=== PATIENT | female | born 1970 | race Caucasian/White ===

== ENCOUNTER → 2019-05-11 | Outpatient (CLI) | payer BC ==
--- NOTE | 2019-05-11 11:17 | MM ---
Reason for exam: screening (asymptomatic). Last mammogram was performed 3 years and 5 months ago. History: Implants in both breasts, June 2014. Taking hormonal contraceptives for 2 years. Physical Findings: A clinical breast exam by your physician is recommended on an annual basis and results should be correlated with mammographic findings. MG Screening Mammo Implant/CAD Bilateral CC, MLO, and ID view(s) were taken. Prior study comparison: November 29, 2015, bilateral MG screening mammo implant/CAD. October 01, 2012, mammogram, performed at [facility]. The breast tissue is heterogeneously dense. This may lower the sensitivity of mammography. No suspicious abnormality. Bilateral prepectoral silicone implants. No significant changes when compared with prior studies. ASSESSMENT: Negative, BI-RAD 1 RECOMMENDATION: Routine screening mammogram of both breasts in 1 year.
== END | disposition home or self-care (01) ==
LOC: RADMAMWWP 07:00
PROVIDERS: ATTEND Obstetrics & Gynecology
DX: Z12.31 Encounter for screening mammogram for malignant neoplasm of breast (principal); Z98.82 Breast implant status
CPT/HCPCS: 77067

== ENCOUNTER → 2019-09-04 | Outpatient (CLI) | payer BC ==
[2019-09-04 08:40] LABS: Basophils % (A) 1 %; Eosinophils # (A) 0.2 k/uL (0-0.7); Eosinophils % (A) 3 %; HCT 41.1 % (34.0-46.0); HGB 13.7 gm/dL (11.4-16.0); Lymphocytes # (A) 2.4 k/uL (1.0-4.8); Lymphocytes % (A) 37 %; MCH 31.8 pg (25.0-35.0); MCHC 33.3 g/dL (31.0-37.0); MCV 95.6 fL (80.0-100.0); Monocytes # (A) 0.5 k/uL (0-1.0); Monocytes % (A) 7 %; Neutrophils # (A) 3.3 k/uL (1.3-7.7); Neutrophils % (A) 50 %; Platelet Count 350 k/uL (150-450); RDW 11.9 % (11.5-15.5); WBC 6.6 k/uL (3.8-10.6)
[2019-09-04 08:43] LABS: Potassium 4.7 mmol/L (3.5-5.1)
== END | disposition home or self-care (01) ==
LOC: LABPAT 07:44
PROVIDERS: ATTEND Obstetrics & Gynecology
DX: Z01.812 Encounter for preprocedural laboratory examination (principal); R10.2 Pelvic and perineal pain; D25.9 Leiomyoma of uterus, unspecified; N92.1 Excessive and frequent menstruation with irregular cycle
CPT/HCPCS: 36415; 80051; 82565; 82947; 84520; 85025; 86850; 86900; 86901; 87086

== ENCOUNTER 2019-09-11 05:52 | Day surgery (SDC) | payer BC ==
[2019-09-05 11:03] VITALS: BMI 21.7
[~2019-09-11 05:52] MED LIST: DEXAMETHASONE SOD PHOSPHATE 10 MG/ML 1 ML VIAL IV ONE; HYDROmorphone 0.5 MG/0.5 ML SYRINGE IVP PRN; LIDOCAINE 1% 20 ML VIAL (10MG/ML) FOR IV START INTRADERMA PRN; ONDANSETRON 4 MG/2 ML VIAL IVP ONE
[2019-09-11] MEDS ORDERED: ONDANSETRON 4 MG/2 ML VIAL IVP ONE (06:25)
[2019-09-11] MEDS ORDERED: DEXAMETHASONE SOD PHOS (MDV) 100 MG/10 ML VIAL IVP ONE (06:25)
[2019-09-11] MEDS ORDERED: LACTATED RINGERS 1,000 ML IV ONE (06:25)
[2019-09-11] MEDS ORDERED: MIDAZOLAM 2 MG/2 ML VIAL IVP ONE (07:04)
[2019-09-11] MEDS ORDERED: SCOPOLAMINE 1.5MG/72HR PATCH TRANSDERM ONE (07:06)
[2019-09-11] MEDS ORDERED: fentaNYL (PF) 50 MCG/ML 2 ML AMP ONE (07:27)
[2019-09-11] MEDS ORDERED: LIDOCAINE 1% INJ 10MG/ML (20 ML MDV) ONE (07:27)
[2019-09-11] MEDS ORDERED: NEOSTIGMINE 1 MG/ML 10 ML VIAL ONE (07:27)
[2019-09-11] MEDS ORDERED: MORPHINE SULFATE (PF) 0.3 MG/0.3 ML SYR ONE (07:27)
[2019-09-11] MEDS ORDERED: ROCURONIUM BROMIDE 10 MG/ML 10 ML VIAL IV ONE (07:27)
[2019-09-11] MEDS ORDERED: SUCCINYLCHOLINE CHLORIDE 100 MG/5 ML SYR IV ONE (07:27)
[2019-09-11] MEDS ORDERED: GLYCOPYRROLATE 0.2 MG/ML 2 ML VIAL ONE (07:27)
[2019-09-11] MEDS ORDERED: KETOROLAC 30 MG/ML 1 ML VIAL ONE (07:27)
[2019-09-11] MEDS ORDERED: PROPOFOL 10 MG/ML 20 ML VIAL IV ONE (07:27)
[2019-09-11] MEDS ORDERED: VASOPRESSIN 20 UNIT/ML 1 ML VIAL SQ ONE (07:44)
[2019-09-11] MEDS ORDERED: BACITRACIN 500 UNIT/GM OINT 28.4 GM TUBE TOPICAL ONE ×2 (07:56→08:36)
[2019-09-11] MEDS ORDERED: SIMETHICONE 80 MG CHEWABLE PO PRN (08:55)
[2019-09-11] MEDS ORDERED: IBUPROFEN 600 MG TAB PO PRN (08:55)
[2019-09-11] MEDS ORDERED: ZOLPIDEM 5 MG TAB PO PRN (08:55)
[2019-09-11] MEDS ORDERED: METOCLOPRAMIDE 5 MG/ML 2 ML VIAL IVP PRN (08:55)
[2019-09-11] MEDS ORDERED: ONDANSETRON 4 MG/2 ML VIAL IVP PRN (08:55)
[2019-09-11] MEDS ORDERED: diphenhydrAMINE 50 MG/ML 1 ML VIAL IVP PRN (08:55)
--- NOTE | 2019-09-11 08:55 | P.OP ---
Date of Procedure: 09/11/19 Preoperative Diagnosis: Menometrorrhagia fibroid uterus Postoperative Diagnosis: Same, normal-appearing ovaries bilaterally Procedure(s) Performed: Vaginal hysterectomy Anesthesia: RHONDAA Surgeon: Kayla Delcid Strategic Analyst #1: Vianney Chand Estimated Blood Loss (ml): 125 IV fluids (ml): 800 Urine output (ml): 100 Pathology: other (Cervix and uterus) Condition: stable Disposition: PACU Operative Findings: Normal-appearing ovaries bilaterally Description of Procedure: Patient is brought to the operating suite where a spinal with Duramorph is placed, and a general anesthetic is administered. She's placed in the dorsal lithotomy position. Cervix, vagina, perineal bodies are all prepped and draped in usual sterile fashion. The appropriate timeout is performed to assure proper patient and procedural identification. Urine hCG is negative. Bladder is drained for approximately 100 mL of clear yellow urine. Weighted speculum was placed into the vagina. Antibiotics are given. The anterior lip of the cervix is grasped with a double-tooth tenaculum. The cervix is injected circumferentially with a dilute Pitressin solution, 10 mL total used. [place] blade scalpel is used to incise the cervix circumferentially with a V positioning at 6:00. Sponge rolled finger is used to sweep the mucosa from the underlying fascial planes. Peritoneum is entered at 6:00 with a Metzenbaum scissor, suture tied with 2-0 Vicryl and held with a hemostat. The large billed speculum was then placed into the peritoneal cavity. The right uterosacral cardinal ligament is identified, clamped cut and held with a 0 Vicryl suture laterally. The same procedure is carried out contralaterally, again Clint stitch securely placed. At all times the vaginal mucosa is swept well from the operative field to avoid ureteral or bladder injury. The uterine vasculature is identified, clamped cut and suture ligated with 0 Vicryl suture. An additional stitches taken superior to each of the vessels to assure complete vascular control. The anterior peritoneum was entered at 12:00. Uterus is "walked out" posteriorly. Zuly clamps are used across the final pedicles. These are clamped, cut, tied, flashed, and retied for excellent hemostasis. The ovaries are then visualized with a sponge stick and noted to be within normal limits. They are left in situ per the patient's wishes. All pedicles are once again visualized and noted to be hemostatically intact. The speculum is changed to the shallow speculum. The 2-0 Vicryl suture previously placed is now brought around in a pursestring fashion to close the peritoneum. The uterosacral cardinal ligament stitches are brought across to incorporate the opposite ligament and vaginal mucosa. 2 additional [id number]-[id number] sutures are used, one superior and one inferior to this for final cuff closure. Andrea is placed in the urine is clear. All sponge needle and enhancement counts are correct at the end of the procedure. The vagina is packed with one-inch iodophor gauze with basic tracing. Patient is brought back to the recovery room in stable condition with a blood pressure of 107/56, pulse 67.
[2019-09-11] MEDS: LACTATED RINGERS 1,000 ML IV SCH ×2 (09:24→19:28)
[2019-09-11] MEDS: MORPHINE SULFATE 2 MG/ML SYRINGE IVP PRN ×4 (09:35→09:51)
[2019-09-11] MEDS ORDERED: NALOXONE 0.4 MG/ML 1 ML VIAL IV PRN (09:39)
[2019-09-11] MEDS ORDERED: MEPERIDINE 50 MG/ML SYRINGE IVP ONE (10:04)
[2019-09-11] MEDS: KETOROLAC 30 MG/ML 1 ML VIAL IVP PRN ×2 (11:52→19:42)
[2019-09-11] MEDS ORDERED: SENNOSIDES-DOCUSATE SODIUM 1 EACH TAB PO SCH (21:00)
[2019-09-12 06:39] VITALS: RESP 16
--- NOTE | 2019-09-12 07:25 | P.DS ---
Providers Date of admission: 09/11/2019 Expected date of discharge: 09/12/19 Attending physician: Kayla Delcid Primary care physician: [facility] Course: This is a 49-year-old white female who presented with a history of heavy long painful periods. She was noted to have a fibroid uterus, and my suspicion is that of adenomyosis. After thorough consultation, patient elected to proceed with vaginal hysterectomy. Her preference was to have ovaries remain in situ if within normal limits to inspection. Please see my dictated history and physical for details. Patient was admitted and underwent vaginal hysterectomy under my care. She did well intraoperatively with an estimated blood loss of 125 mL's. Ovaries appeared normal and were left in situ per her wishes. Vagina was packed with iodoform gauze and Andrea catheter placed. Please see my dictated operative note for details. This morning the patient is doing well. She is voiding, ambulating, passing flatus without difficulty. Vaginal packing and Andrea catheter were removed last night. She denies vaginal bleeding. She has no complaints, no pain, and is requesting discharge home. She appears to be in very good condition for discharge home. She will follow-up with me in the office in 2 weeks. I have reminded her no intercourse, tampons or douching. She will use [id number] Advil or Aleve, or Motrin as needed for pain. She will call with any fevers shakes or chills, foul smelling or copious lochia, with the passage of large blood clots, or indeed with any concerns or issues. No heavy lifting, no driving for 2 weeks. Patient Condition at Discharge: Good Plan - Discharge Summary Discharge Rx Participant: No New Discharge Prescriptions: No Action Levothyroxine Sodium [Synthroid] 125 mcg PO DAILY Multivitamins, Thera [Multivitamin (formulary)] 1 tab PO DAILY Atorvastatin [Lipitor] 20 mg PO DAILY Glucos Sul 2Kcl/MSM/Chond/C/Mn [Glucosamine Chondroitin Cap] 1 each PO DAILY Fish Oil/Dha/Epa [Fish Oil 1,200 mg Fish Oil] 1 each PO DAILY Discharge Medication List Levothyroxine Sodium [Synthroid] 125 mcg PO DAILY 10/21/14 [History] Atorvastatin [Lipitor] 20 mg PO DAILY 09/05/19 [History] Fish Oil/Dha/Epa [Fish Oil 1,200 mg Fish Oil] 1 each PO DAILY 09/05/19 [History] Glucos Sul 2Kcl/MSM/Chond/C/Mn [Glucosamine Chondroitin Cap] 1 each PO DAILY 09/05/19 [History] Multivitamins, Thera [Multivitamin (formulary)] 1 tab PO DAILY 09/05/19 [History] Follow up Appointment(s)/Referral(s): Kayla Delcid MD [STAFF PHYSICIAN] - 2 Weeks Patient Instructions/Handouts: *[facility] - Scopalamine Patch Instructions
[2019-09-12 08:14] VITALS: BP 103/67; PULSE 103; TEMP 97.6
== END 2019-09-12 08:15 ==
LOC: OR 05:52 → 4FBP 09:04 → OR 09-12 08:15
PROVIDERS: ATTEND Obstetrics & Gynecology
DX: D25.1 Intramural leiomyoma of uterus (principal); N72 Inflammatory disease of cervix uteri; E03.9 Hypothyroidism, unspecified; Z87.891 Personal history of nicotine dependence; Z79.890 Hormone replacement therapy; Z79.899 Other long term (current) drug therapy
CPT/HCPCS: 81025; 88307; 58260; J2250; J2710; J2175; J0690; J2405; J2001; J2274; J3010; J1885; J2270; J1100; J0330; J2704; 86850; 86900; 86901

== ENCOUNTER → 2021-02-05 | Outpatient (CLI) | payer BC ==
--- NOTE | 2021-02-07 15:14 | MM ---
Reason for exam: screening (asymptomatic). Last mammogram was performed 1 year and 9 months ago. History: Patient is postmenopausal. Implants in both breasts, June 2014. Took hormonal contraceptives for 2 years. Physical Findings: A clinical breast exam by your physician is recommended on an annual basis and results should be correlated with mammographic findings. MG Screening Mammo Implant/CAD Bilateral CC and MLO view(s) were taken. Prior study comparison: May 11, 2019, bilateral MG screening mammo implant/CAD. November 29, 2015, bilateral MG screening mammo implant/CAD. The breast tissue is heterogeneously dense. This may lower the sensitivity of mammography. Retropectoral silicone implants. Inferior asymmetric density right MLO is more defined but does not clearly persist on the implant view. Precautionary 6 month follow up. ASSESSMENT: Probably benign, BI-RAD 3 RECOMMENDATION: Follow-up diagnostic mammogram of the right breast in 6 months. (3D)
== END | disposition home or self-care (01) ==
LOC: RADMAMWWP 16:10
PROVIDERS: ATTEND Obstetrics & Gynecology
DX: Z12.31 Encounter for screening mammogram for malignant neoplasm of breast (principal); Z78.0 Asymptomatic menopausal state; Z79.3 Long term (current) use of hormonal contraceptives
CPT/HCPCS: 77067

== ENCOUNTER → 2022-03-20 | Outpatient (CLI) | payer BC ==
--- NOTE | 2022-03-23 09:20 | MM ---
Reason for Exam: Hx of breast augmentation, asymptomatic. Last mammogram was performed 1 year(s) and 2 month(s) ago. Patient History: Menarche at age 15. First Full-Term at age 24. Hysterectomy at age 49. Postmenopausal. Hormonal Contraceptives for 2 years until age 48. 06/2014, Bilateral Implants. Risk Values: Deepthi 5 year model risk: 0.8%. NCI Lifetime model risk: 8.2%. Prior Study Comparison: 11/29/2015 Bilateral Screening Mammogram, [facility]. 05/11/2019 Bilateral Screening Mammogram, [facility]. 02/05/2021 Bilateral Screening Mammogram, [facility]. Tissue Density: The breast tissue is heterogeneously dense. This may lower the sensitivity of mammography. Findings: Analyzed By CAD. There is no suspicious group of microcalcifications or new suspicious mass in either breast. Retropectoral silicone implants bilaterally. Patient demonstrated inferior asymmetric density of the right MLO is not appreciated on today's exam. Overall Assessment: Benign, BI-RAD 2 Management: Screening Mammogram of both breasts in 1 year. A clinical breast exam by your physician is recommended on an annual basis and results should be correlated with mammographic findings. Electronically signed and approved by: Jovan Gonzales D.O.
== END | disposition home or self-care (01) ==
LOC: RADMAMWWP 14:50
PROVIDERS: ATTEND Obstetrics & Gynecology
DX: Z12.31 Encounter for screening mammogram for malignant neoplasm of breast (principal); Z78.0 Asymptomatic menopausal state
CPT/HCPCS: 77063; 77067

== ENCOUNTER → 2023-12-01 | Outpatient (CLI) | payer BC ==
--- NOTE | 2023-12-02 20:06 | MM ---
Reason for Exam: Screening (asymptomatic). Last mammogram was performed 1 year(s) and 8 month(s) ago. Patient History: Menarche at age 15. First Full-Term at age 24. Hysterectomy at age 49. Postmenopausal. Hormonal Contraceptives for 2 years until age 48. 06/2014, Bilateral Implants. Risk Values: Deepthi 5 year model risk: 0.9%. NCI Lifetime model risk: 7.9%. Prior Study Comparison: 05/11/2019 Bilateral Screening Mammogram, [facility]. 02/05/2021 Bilateral Screening Mammogram, [facility]. 03/20/2022 Bilateral MG 3D screen mammo imp/cad., [facility]. Tissue Density: The breasts are heterogeneously dense, which may obscure small masses. Findings: Analyzed By CAD. Bilateral retropectoral silicone implants. A focal asymmetry at the 7:00 position left breast has become more defined. This may represent superimposition shadow but further evaluation is recommended. Otherwise, no significant change. Overall Assessment: Incomplete: need additional imaging evaluation, BI-RAD 0 Management: Special View Mammogram of the left breast. . [facility] will attempt to contact patient to return for supplemental views and ultrasound if indicated. Electronically signed and approved by: Becca Christina M.D. Radiologist
== END | disposition home or self-care (01) ==
LOC: RADMAMWWP 06:58
PROVIDERS: ATTEND Obstetrics & Gynecology
DX: Z12.31 Encounter for screening mammogram for malignant neoplasm of breast (principal); Z78.0 Asymptomatic menopausal state; Z98.82 Breast implant status
CPT/HCPCS: 77067

== ENCOUNTER → 2023-12-08 | Outpatient (CLI) | payer BC ==
--- NOTE | 2023-12-08 08:06 | MM ---
Reason for Exam: Additional evaluation requested from abnormal screening. Last screening mammogram was performed less than 1 month ago. Patient History: Menarche at age 15. First Full-Term at age 24. Hysterectomy at age 49. Postmenopausal. Patient has history of breast feeding. Hormonal Contraceptives for 2 years until age 48. 06/2014, Bilateral Implants. Risk Values: Deepthi 5 year model risk: 0.9%. NCI Lifetime model risk: 7.9%. Prior Study Comparison: 02/05/2021 Bilateral Screening Mammogram, [facility]. 03/20/2022 Bilateral MG 3D screen mammo imp/cad., [facility]. 12/01/2023 Bilateral MG screening mammo implant/CAD, [facility]. Tissue Density: Left: The breasts are heterogeneously dense, which may obscure small masses. Findings: Analyzed By CAD. Area of concern/asymmetry compresses out on spot compression imaging. No suspicious masses, calcifications or distortions. Overall Assessment: Benign, BI-RAD 2 Management: Screening Mammogram of both breasts in 1 year. Results were given to the patient verbally at the time of exam. Patient should continue monthly self-breast exams. A clinical breast exam by your physician is recommended on an annual basis. This exam should not preclude additional follow-up of suspicious palpable abnormalities. Note on Deepthi scores and lifetime risk: 1. A Deepthi score greater than 3% is considered moderate risk. If this is the case, consider specialist referral to assess eligibility for a risk reducing agent. 2. If overall lifetime risk for the development of breast cancer is 20% or higher, the patient may qualify for future screening with alternating mammogram and breast MRI. Electronically signed and approved by: Kolton Archer DO
== END | disposition home or self-care (01) ==
LOC: RADMAMWWP 07:32
PROVIDERS: ATTEND Obstetrics & Gynecology
DX: R92.332 Mammographic heterogeneous density, left breast (principal); Z78.0 Asymptomatic menopausal state
CPT/HCPCS: 77061; 77065

== ENCOUNTER → 2024-05-31 | Outpatient (CLI) | payer BC ==
--- NOTE | 2024-05-31 07:50 | MM ---
Reason for Exam: Clinical finding. Last screening mammogram was performed 6 month(s) ago. Indicated Problems: Lump or thickening of the left side (size 10-20) for 2 Week(s). Patient History: Menarche at age 15. First Full-Term at age 24. Hysterectomy at age 49. Postmenopausal. Patient has history of breast feeding. Hormonal Contraceptives for 2 years until age 48. 06/2014, Bilateral Implants. Risk Values: Deepthi 5 year model risk: 0.9%. NCI Lifetime model risk: 7.9%. Prior Study Comparison: 03/20/2022 Bilateral MG 3D screen mammo imp/cad., [facility]. 12/01/2023 Bilateral MG screening mammo implant/CAD, [facility]. 12/08/2023 Left MG 3D work up w/cad w/imp , [facility]. Tissue Density: Left: The breasts are heterogeneously dense, which may obscure small masses. Findings: Analyzed By CAD. There is a vague 1 cm nodular density at the site of clinical concern left 3:00 position approximately 4 cm from the nipple. Ultrasound recommended. Overall Assessment: Incomplete: need additional imaging evaluation, BI-RAD 0 Management: Diagnostic Breast Ultrasound of the left breast. . Results were given to the patient verbally at the time of exam. Patient should continue monthly self-breast exams. A clinical breast exam by your physician is recommended on an annual basis. This exam should not preclude additional follow-up of suspicious palpable abnormalities. Note on Deepthi scores and lifetime risk: 1. A Deepthi score greater than 3% is considered moderate risk. If this is the case, consider specialist referral to assess eligibility for a risk reducing agent. 2. If overall lifetime risk for the development of breast cancer is 20% or higher, the patient may qualify for future screening with alternating mammogram and breast MRI. [facility], , 05/31/2024 7:47 AM. Electronically signed and approved by: Keon Adams M.D. Radiologis
--- NOTE | 2024-05-31 08:20 | USB ---
Reason for Exam: Clinical finding. Patient History: Menarche at age 15. First Full-Term at age 24. Hysterectomy at age 49. Postmenopausal. Patient has history of breast feeding. Hormonal Contraceptives for 2 years until age 48. 06/2014, Bilateral Implants. Risk Values: Deepthi 5 year model risk: 0.9%. NCI Lifetime model risk: 7.9%. Technique: Method: Targeted. Prior Study Comparison: 03/20/2022 Bilateral MG 3D screen mammo imp/cad., [facility]. 12/01/2023 Bilateral MG screening mammo implant/CAD, [facility]. 12/08/2023 Left MG 3D work up w/cad w/imp , [facility]. Findings: The area of palpable concern of the left breast, the axilla of the left breast and the retroareolar of the left breast were scanned. Hypoechoic area likely reflecting a cluster of cysts is noted at the left 3:00 position 4 cm from the nipple measuring 9 x 3 mm. No discrete solid masses appreciated. Precautionary six-month follow-up recommended.. Overall Assessment: Probably benign, BI-RAD 3 Management: Diagnostic Breast Ultrasound of the left breast in 6 months. A clinical breast exam by your physician is recommended on an annual basis and results should be correlated with mammographic findings. This exam should not preclude additional follow-up of suspicious palpable abnormalities. Results were given to the patient verbally at the time of exam. [facility], , 05/31/2024 8:09 AM. Electronically signed and approved by: Keon Adams M.D. Radiologis
== END | disposition home or self-care (01) ==
LOC: RADMAMWWP 07:00
PROVIDERS: ATTEND Obstetrics & Gynecology
CPT/HCPCS: 77061; 77065

== ENCOUNTER → 2024-07-07 | Outpatient (CLI) | payer BC ==
[2024-07-07 10:38] LABS: Basophils # (A) 0.03 X 10*3/uL (0.00-0.10); Basophils % (A) 0.5 %; Eosinophils # (A) 0.17 X 10*3/uL (0.04-0.35); Eosinophils % (A) 2.7 %; HCT 38.2 % (37.2-46.3); Lymphocytes # (A) 2.17 X 10*3/uL (0.90-5.00); Lymphocytes % (A) 34.1 %; MCH 27.2 pg (27.0-32.0); MCHC 31.4 g/dL (32.0-37.0); MCV 86.6 FL (80.0-97.0); Mean Platelet Volume 8.9 FL (9.5-12.2); Monocytes # (A) 0.68 X 10*3/uL (0.20-1.00); Monocytes % (A) 10.7 %; NRBC Per 100 WBC 0 X 10*3/uL (0.00-0.01); Neutrophils % (A) 51.8 %; Platelet Count 341 X 10*3/uL (140-440); RBC 4.41 X 10*6/uL (4.10-5.20); RDW 14.3 % (11.5-14.5); WBC 6.36 X 10*3/uL (4.50-10.00)
[2024-07-07 11:01] LABS: ALT 30 U/L (8-44); AST 30 U/L (13-35); Albumin 4.4 g/dL (3.8-4.9); Alkaline Phosphatase 90 U/L (41-126); BUN/Creat Ratio 14.88 Ratio (12.00-20.00); Blood Urea Nitrogen 11.9 mg/dL (9.0-27.0); Calcium 9.7 mg/dL (8.7-10.3); Carbon Dioxide 26.3 mmol/L (21.6-31.8); Chloride 106 mmol/L (96-109); Chol/HDL Ratio 3.19 Ratio; Globulin 2.2 g/dL (1.6-3.3); Glucose 86 mg/dL (70-110); LDL Cholesterol,Calculated 119.5 mg/dL (0.0-131.0); Potassium 4.4 mmol/L (3.5-5.5); Sodium 144 mmol/L (135-145); Total Bilirubin 0.4 mg/dL (0.3-1.2); Total Protein 6.6 g/dL (6.2-8.2)
== END | disposition home or self-care (01) ==
LOC: LABWHC1 07:19
PROVIDERS: ATTEND Family Medicine
DX: E03.9 Hypothyroidism, unspecified (principal)
CPT/HCPCS: 36415; 80053; 80061; 84443; 85025

== ENCOUNTER → 2025-02-15 | Outpatient (CLI) | payer BC ==
--- NOTE | 2025-02-15 09:03 | MM ---
Reason for Exam: Clinical finding. Last mammogram was performed 1 year(s) and 3 month(s) ago. Patient History: Menarche at age 15. First Full-Term at age 24. Hysterectomy at age 49. Postmenopausal. Patient has history of breast feeding. Currently using Unspecified Hormone. 06/2014, Bilateral Implants. Risk Values: Deepthi 5 year model risk: 0.9%. NCI Lifetime model risk: 7.8%. Tissue Density: The breasts are heterogeneously dense, which may obscure small masses. Findings: No suspicious new distortion or worrisome group of microcalcification in either breast. Bilateral breast implants are redemonstrated. Overall Assessment: Benign, BI-RAD 2 Management: Screening Mammogram of both breasts in 1 year. . Results were given to the patient verbally at the time of exam. Patient should continue monthly self-breast exams. A clinical breast exam by your physician is recommended on an annual basis. This exam should not preclude additional follow-up of suspicious palpable abnormalities. Note on Deepthi scores and lifetime risk: 1. A Deepthi score greater than 3% is considered moderate risk. If this is the case, consider specialist referral to assess eligibility for a risk reducing agent. 2. If overall lifetime risk for the development of breast cancer is 20% or higher, the patient may qualify for future screening with alternating mammogram and breast MRI. [facility], , 02/15/2025 9:01 AM. Electronically signed and approved by: Sander Bernstein M.D.
--- NOTE | 2025-02-15 11:04 | USB ---
Reason for Exam: Follow-up at short interval from prior study. Patient History: Menarche at age 15. First Full-Term at age 24. Hysterectomy at age 49. Postmenopausal. Patient has history of breast feeding. Currently using Unspecified Hormone. 06/2014, Bilateral Implants. Risk Values: Deepthi 5 year model risk: 0.9%. NCI Lifetime model risk: 7.8%. Technique: Method: Targeted. Prior Study Comparison: 12/01/2023 Bilateral MG screening mammo implant/CAD, [facility]. 12/08/2023 Left MG 3D work up w/cad w/imp LT, [facility]. 05/31/2024 Left MG 3D diag mammo imp w/cad LT, [facility]. Findings: The lateral section of the breast of the left breast, the axilla of the left breast and the retroareolar of the left breast were scanned. Targeted ultrasound. Incidental 3 x 2 x 3 mm thin-walled cyst abutting the implant 2:00 position 4 cm distance from nipple. Prior larger hypoechoic area not clearly seen at 3:00 level. Overall Assessment: Benign, BI-RAD 2 Management: Screening Mammogram of both breasts in 1 year. Return to routine follow-up. A clinical breast exam by your physician is recommended on an annual basis and results should be correlated with mammographic findings. This exam should not preclude additional follow-up of suspicious palpable abnormalities. Results were given to the patient verbally at the time of exam. [facility], , 02/15/2025 11:01 AM. Electronically signed and approved by: Sander Bernstein M.D.
== END | disposition home or self-care (01) ==
LOC: RADMAMWWP 08:26
PROVIDERS: ATTEND Obstetrics & Gynecology
DX: R92.8 Other abnormal and inconclusive findings on diagnostic imaging of breast (principal); R92.333 Mammographic heterogeneous density, bilateral breasts; Z98.82 Breast implant status; Z78.0 Asymptomatic menopausal state
CPT/HCPCS: 77062; 77066